=== PATIENT | female | born 1930 | race Asian ===

== ENCOUNTER 2017-07-03 06:00 | Day surgery (SDC) | payer MEDICARE, BC ==
[2017-07-03] VITALS (18 sets, daily range): BP systolic 128–211; BP diastolic 56–96; PULSE 65–82; RESP 16–22; Ht 147.3 cm; Wt 61.4 kg
[~2017-07-03] VITALS: Ht 147.3 cm; Wt 61.4 kg
[2017-07-03] MEDS ORDERED: PROPOFOL 200 MG INJ ONE (07:00)
[2017-07-03] MEDS ORDERED: POLYMYXIN/BACITRACIN 1L IRRIG ONE (07:20)
[2017-07-03] MEDS ORDERED: LIDOCAINE 1% (MDV) 20 ML INJ ONE (07:22)
[2017-07-03] MEDS ORDERED: BUPIVACAINE 0.5% (SDV) 30 ML INJ ONE (07:22)
[2017-07-03] MEDS ORDERED: SOD CHLORIDE 0.9% 500 ML ONE (07:23)
[2017-07-03] MEDS ORDERED: CLOP75TA27 PO (07:30)
[2017-07-03] MEDS ORDERED: LEVEM SC (07:30)
[2017-07-03] MEDS ORDERED: GLUC1VIA6 IJ (07:30)
[2017-07-03] MEDS ORDERED: DOCU-144 PO (07:30)
[2017-07-03] MEDS ORDERED: CLON-379 PO (07:30)
[2017-07-03] MEDS ORDERED: LORA0.5T PO (07:30)
[2017-07-03] MEDS ORDERED: LEVO25TA59 PO (07:30)
[2017-07-03] MEDS ORDERED: HYDR-3671 PO (07:30)
[2017-07-03] MEDS ORDERED: FAMO20TA18 PO (07:30)
[2017-07-03] MEDS ORDERED: ISOS10TA2 PO (07:30)
[2017-07-03] MEDS ORDERED: DIVA250T4 PO (07:30)
[2017-07-03] MEDS ORDERED: FOLI-49 PO (07:30)
[2017-07-03] MEDS ORDERED: MIDAZOLAM 1 MG/ML 2 ML INJ ONE (07:44)
[2017-07-03 08:03] LABS: BASOPHILS % 0.6 % (0.0-2.0); EOSINOPHILS # 0.2 10^3/ul (0.0-0.5); EOSINOPHILS % 2.7 % (0.0-7.0); HEMOGLOBIN 11.1 g/dl (12.0-16.0); LYMPHOCYTES # 1.9 10^3/ul (0.8-2.9); LYMPHOCYTES % 26.5 % (15.0-51.0); MEAN CORPUSCULAR HEMOGLOBIN 30.5 pg (29.0-33.0); MEAN CORPUSCULAR HGB CONC 30.8 g/dl (32.0-37.0); MEAN CORPUSCULAR VOLUME 98.9 fl (82.0-101.0); MEAN PLATELET VOLUME 9.9 fl (7.4-10.4); MONOCYTE # 0.6 10^3/ul (0.3-0.9); MONOCYTES % 8.8 % (0.0-11.0); NEUTROPHILS % 61.3 % (39.0-77.0); PLATELET COUNT 336 10^3/UL (140-415); RED BLOOD COUNT 3.64 10^6/ul (4.20-5.40); RED CELL DISTRIBUTION WIDTH 13.5 % (11.5-14.5)
[2017-07-03] MEDS ORDERED: CEFAZOLIN 1 GM/50 ML (PMX) 100 ML IVPB ONE (08:13)
[2017-07-03 08:23] LABS: ALBUMIN 3.9 g/dl (3.3-4.9); ALBUMIN/GLOBULIN RATIO 1.3; BILIRUBIN,INDIRECT 0.2 mg/dl (0-1.1); BILIRUBIN,TOTAL 0.2 mg/dl (0.2-1.3); TOTAL PROTEIN 6.9 g/dl (6.1-8.1)
[2017-07-03 08:26] LABS: CALCIUM 10.4 mg/dl (8.4-10.2); CREATININE 2.38 mg/dl (0.44-1.00); POTASSIUM 5.1 mmol/L (3.5-5.1)
--- NOTE | 2017-07-03 09:19 | SIPON ---
Date/Time of Note Date/Time of Note DATE: 07/03/17 TIME: 09:14 Operative Report Free Text/Dictation 1. Dual chamber pacemaker gen change. 2. Fluoroscopy with interpretation. Indication: Bradycardia, EOL pacer, SSS Post Procedure: Same Anesthesia: MAC per anesthesiologist. EBL: 10 cc Transfusion: NONE Specimen: Implanted Pacemaker, explanted pacemaker generator Complications: None DEVICE INFORMATION: see chart - [employer] Pacer DDD 60. DESCRIPTION OF PROCEDURE: The informed consent was obtained from the patient and family. The patient brought to the hospital in fasting condition. Anesthesiologist provides airway and sedation, she received Ancef antibiotics before the procedure. The left side of the chest was prepped and draped in the usual sterile fashion. 1 percent of lidocaine was used for local anesthesia. Using a number 10 scalpel a 3 cm incision was made. Using cautery and my dissection the pocket was created. Generator was explanted. New generator attached. The pocket irrigated with antibiotic solution. Pacemaker was placed inside the pocket. The skin was closed with multiple layers of 2-0 Vicryl sutures. Steri-Strips were applied on top of the incision. The patient appears to have tolerated the procedure well. She will have postop x-ray to rule out pneumothorax. Continues antibiotics. TIMOTEO STANLEY MD Jul 03, 2017 09:19
[2017-07-03] MEDS ORDERED: SOD CHLORIDE 0.9% 1,000 ML IV SCH (09:23)
[2017-07-03] MEDS ORDERED: morphine 2 MG INJ IV PRN (09:30)
[2017-07-03] MEDS ORDERED: ACETAMINOPHEN 325 MG TAB PO PRN (09:30)
[2017-07-03] MEDS ORDERED: hydrALAzine 20 MG INJ ONE (09:53)
[2017-07-03] MEDS ORDERED: hydrALAzine 20 MG INJ IV PRN (10:00)
--- NOTE | 2017-07-03 10:05 | RADRPT ---
PROCEDURE: XR Chest 1 view. CLINICAL INDICATION: Status post pacemaker generator change. TECHNIQUE: AP views of the chest were obtained. COMPARISON: None. FINDINGS: The heart is large. Calcified atherosclerosis is noted in the aorta. Left-sided dual chamber pacema ker has its leads over the heart. Elevated right hemidiaphragm is identified. No consolidations are identified. No pneumothorax is seen. Osseous structures are intact. IMPRESSION: Cardiomegaly with calcified atherosclerosis in the aorta. Left-sided dual chamber pacemaker with its leads over the heart. No visualized pneumothorax. Elevated right hemidiaphragm. Clear lungs. RPTAT: AA .Carlos Godoy MD, MD Date Time Electronically viewed and signed by .Carlos Godoy MD, on 07/03/2017 10:05 .P/
--- NOTE | 2017-07-03 12:21 | QN ---
Documentation Comment This is a 87-year-old female with past medical history of essential hypertension, congestive heart failure, type 2 diabetes mellitus, COPD, hypothyroidism, GERD, bipolar disorder, anxiety, and sick sinus syndrome with a pacemaker in place. She was brought to [facility] for elective procedure of dual chamber pacemaker generator change. The patient underwent the generator change without any significant complications. After the procedure, the patient became agitated and confused. The patient received IV Versed for the procedure. This is probably what caused her agitated. The patient is stable and back to her baseline at the time of my physical examination. The patient can be discharged back as per cardiology. There is no need for any further inpatient monitoring. The patient was never admitted as inpatient to the hospital. Physical Examination General: Adequately build 87 year-old female lying in bed in no apparent distress. HEENT: Normocephalic, atraumatic. Eyes: Anicteric sclerae, conjunctivae clear. ENT: Nasal septum midline, oral mucosa moist. Neck supple, no JVD noticed. Respiratory: Bilaterally diminished breath sounds. No use of accessory muscles of respiration. No adventitious breath sounds. Cardiovascular: S1, S2 heard. Left chest wall dressing. Abdomen: Soft, nontender, and nondistended. Bowel sounds positive in all 4 quadrants. Genitourinary: Deferred. Extremities: No cyanosis, no clubbing, no edema. Peripheral pulses palpable. Neurologic: The patient is awake and alert. Oriented to self and place. No focal neurologic deficits. Skin: Normal skin turgor. No skin rashes. Thank you Dr. Moffett for asking us to see the patient. Case discussed with Dr. Valenzuela. STEFIF FISHER NP Jul 03, 2017 12:20
[2017-07-03] MEDS ORDERED: CEFAZOLIN 1 GM/50 ML (PMX) 50 ML IVPB SCH (14:00)
[2017-07-03] MEDS ORDERED: CEFAZOLIN 2 GM/50 ML (PMX) 50 ML IVPB SCH (14:00)
--- NOTE | 2017-07-06 17:07 | RADRPT ---
Vent Rate: 68 bpm RR Interval: 0 msec VA Interval: 188 msec QRS Duration: 88 msec QT Interval: 420 msec QTC Interval: 446 msec P-R-T [place]: 26 - 9 - 48 degrees Sinus rhythm with premature atrial complexes with aberrant conduction Cannot rule out Anterior infarct , age undetermined Abnormal ECG Electronically Signed By: Zaheer Her [id number]
== END 2017-07-03 12:37 | disposition home or self-care (01) ==
LOC: SDS 06:00
PROVIDERS: ATTEND Internal Medicine Clinical Cardiac Electrophysiology
DX: I49.5 Sick sinus syndrome (principal); I10 Essential (primary) hypertension; I25.10 Atherosclerotic heart disease of native coronary artery without angina pectoris; E11.9 Type 2 diabetes mellitus without complications; I50.9 Heart failure, unspecified
CPT/HCPCS: 33228; 71010; 80053; 82962; 85025; 93005; C1785; J0360; J0690; J2250; J7040